=== PATIENT | female | born 1945 | race Caucasian/White ===

== ENCOUNTER 2017-11-03 12:04 | Emergency (ER) | payer MEDICARE, OTHER ==
[~2017-11-03] VITALS: Ht 160 cm; Wt 74.0 kg
[2017-11-03 12:19] VITALS: BP 179/82; PULSE 70; RESP 18; TEMP 98.4; O2SAT 95
[2017-11-03] MEDS ORDERED: MINO50CA PO (12:33)
[2017-11-03] MEDS ORDERED: EZET10 PO (12:33)
[2017-11-03] MEDS ORDERED: OLME1TAB PO (12:33)
[2017-11-03] MEDS ORDERED: LEVO.125 PO (12:33)
[2017-11-03] MEDS ORDERED: ROSU20 PO (12:33)
[2017-11-03] MEDS ORDERED: CELE200C PO (12:33)
[2017-11-03] MEDS ORDERED: oxyCODONE/ACETAMINOPHEN 5 MG/325 MG TAB PO ONE (12:45)
[2017-11-03] MEDS ORDERED: KETOROLAC TROMETHAMINE 60 MG/2 ML (IM) VIAL IM ONE (12:45)
--- NOTE | 2017-11-03 13:09 | RADRPT ---
EXAM DATE/TIME: 11/03/2017 12:51 [place] COMPARISON: No previous studies available for comparison. INDICATIONS : Right medial knee pain, patient was walking a felt a stabbing pain. MEDICAL HISTORY : None. SURGICAL HISTORY : None. ENCOUNTER: Initial ACUITY: 1 day PAIN SCORE: 9/10 LOCATION: Right medial knee FINDINGS: Four view examination of the right knee demonstrates no evidence of fracture or dislocation. Bony mi neralization is normal. The articular surfaces are intact. The suprapatellar soft tissues have a no rmal configuration. CONCLUSION: Negative trauma study.. Nwe Potts MD on November 03, 2017 at 13:05 Board Certified Radiologist. This report was verified electronically.
[2017-11-03 13:54] VITALS: BP 150/74; PULSE 72; RESP 18; O2SAT 98
[2017-11-03 13:55] VITALS: RESP 18
[2017-11-03] MEDS ORDERED: PERC5TAB12 PO (13:59)
--- NOTE | 2017-11-03 14:00 | PD ---
HPI Chief Complaint: Back/ Neck Pain or Injury Time Seen by Provider: 12:31 Travel History International Travel<30 days: No Contact w/Intl Traveler<30days: No Traveled to known affect area: No History of Present Illness HPI This is a 72-year-old female here with right knee pain since this morning. She reports while walking to the restroom she felt severe pain and a popping sensation in the right knee. She reports she remained standing during the event. She has known history of arthritis within the knee. She now has difficulty weightbearing. Pain is relieved with rest. Denies paresthesia or weakness of the extremity. Symptom severity is moderate. She is also reporting chronic low back pain which is unchanged from her day today pain. PFSH Past Medical History Arthritis: Yes High Cholesterol: Yes Hypertension: Yes Thyroid Disease: Yes Influenza Vaccination: Yes Past Surgical History Abdominal Surgery: Yes (HERNIA REPAIR(UMBILICAL)) Appendectomy: Yes Section: Yes Social History Alcohol Use: No Tobacco Use: No Substance Use: No Allergies-Medications (Allergen,Severity, Reaction): Coded Allergies: Sulfa (Sulfonamide Antibiotics) (Verified Allergy, Intermediate, Swelling , 11/03/17) amoxicillin (Verified Allergy, Mild, Nausea/Vomiting, 11/03/17) Reported Meds & Prescriptions Reported Meds & Active Scripts Active Reported Minocycline (Minocycline HCl) 50 Mg Cap 50 Mg PO DAILY Synthroid (Levothyroxine Sodium) 125 Mcg Tab 125 Mcg PO DAILY Celebrex (Celecoxib) 200 Mg Cap 200 Mg PO BID Zetia (Ezetimibe) 10 Mg Tab 10 Mg PO DAILY Crestor (Rosuvastatin Calcium) 20 Mg Tab 20 Mg PO DAILY Benicar (Olmesartan) 20 Mg Tab 20 Mg PO DAILY Review of Systems Except as stated in HPI: all other systems reviewed are Neg General / Constitutional: No: Fever Eyes: No: Visual changes HENT: No: Headaches Cardiovascular: No: Chest Pain or Discomfort Respiratory: No: Shortness of Breath Gastrointestinal: No: Abdominal Pain Genitourinary: No: Dysuria Physical Exam Narrative GENERAL: Alert well-appearing 9-year-old female SKIN: Warm and dry. HEAD: Normocephalic. EYES: No injection or drainage. NECK: Supple CARDIOVASCULAR: Regular rate and rhythm without murmurs, gallops, or rubs. RESPIRATORY: Breath sounds equal bilaterally. No accessory muscle use. GASTROINTESTINAL: Abdomen soft, non-tender, nondistended. MUSCULOSKELETAL: No cyanosis, or edema. Right lower extremity: +TTP right anterior knee. No obvious deformity. The joint is stable. Palpable popliteal , dorsal pedis pulses. Full flexion causes pain. Normal sensation. Brisk cap refill. BACK: +TTP lumbar paraspinous musculature. Nontender spine. Without obvious deformity. No CVA tenderness. Data Data Last Documented VS Vital Signs Date Time Temp Pulse Resp B/P (MAP) Pulse Ox O2 Delivery O2 Flow Rate FiO2 11/03/17 12:19 98.4 70 18 179/82 (114) 95 Orders Orders Knee, Complete (4vws) (11/03/17 ) Ketorolac Inj (Toradol Inj) (11/03/17 12:45) Oxycodone-Acetamin 5-325 Mg (Percocet (11/03/17 12:45) MDM Medical Decision Making Medical Screen Exam Complete: Yes Emergency Medical Condition: Yes Differential Diagnosis Knee sprain/strain, fracture, arthralgia Narrative Course 72-year-old female here with right knee pain after twisting injury today. The extremity is neurovascularly intact. The joint is stable. X-rays negative for fracture. He'll be immobilized with an Chris wrap. She is to follow-up with her orthopedist. She was given a shot of Toradol and 1 Percocet in the ED. She reports symptom improvement. She is stable and ready for discharge Diagnosis Primary Impression: Knee sprain Qualified Codes: S83.91XA - Sprain of unspecified site of right knee, initial encounter Referrals: Primary Care Physician Additional Instructions: Pain medication as directed. Ice and elevate the extremity. Chris wrap for support. Call to schedule a follow-up appointment with orthopedist. Scripts Oxycodone-Acetaminophen (Percocet) 5-325 mg Tab 1 TAB PO Q6H Y for PAIN, #12 TAB 0 Refills Prov: Liane Eller 11/03/17 Disposition: 01 DISCHARGE HOME Condition: Stable Liane Eller Nov 03, 2017 14:00
== END 2017-11-03 14:20 | disposition home or self-care (01) ==
LOC: PHEFT 12:04
DX: S83.91XA Sprain of unspecified site of right knee, initial encounter (principal); M54.5 Low back pain; G89.29 Other chronic pain; M19.90 Unspecified osteoarthritis, unspecified site; E78.00 Pure hypercholesterolemia, unspecified; I10 Essential (primary) hypertension; E07.9 Disorder of thyroid, unspecified; X50.1XXA Overexertion from prolonged static or awkward postures, initial encounter; Z79.899 Other long term (current) drug therapy
CPT/HCPCS: 73564; 96372; 99283; J1885